=== PATIENT | female | born 1985 | race Asian ===

== ENCOUNTER 2017-02-10 17:02 | Inpatient (IN) ==
--- NOTE | 2017-02-10 17:15 | Emergency Department Note ---
Disposition Clinical Impression: Recurrent seizures, Neck injury, Cyst, ovary, dermoid, Hematuria, Head injury, Lactic acidosis, Hypokalemia, Back injury Disposition: Admitted As Inpatient Referrals: Chu Newton DO [Primary Care Provider] - General Adult HPI - General Stated complaint: Seizures x2 Time Seen by Provider: 02/10/17 17:08 - History of Present Illness HPI Narrative: 31-year-old female with history of autism and recurrent seizures reports emergency department via EMS with father. The patient had reportedly had a seizure in the car and then another one at home while she was in the shower, she was found on the bathtub floor shaking per the father. The patient had a slow recovery and was brought into the ED via EMS. Their concerns for back pain neck pain and head pain. The patient is not known to be diabetic. There is no history of chest pain shortness of breath or abdominal pain no vomiting or diarrhea reported no fever redness or pain sore throat or cough. There is no history of loss of urine or stool or bowel or bladder dysfunction or weakness or numbness in the arms or legs. No lacerations noted. The father reports the patient started having seizures last year and takes Keppra. The patient reported sees Dr. Xiao at this institution/neurologist. Recurrent seizures with injuries are reported. - Related Data Home Medications Medication Instructions Recorded Confirmed Albuterol Sulfate [Ventolin Hfa] 2 puff IH Q4H PRN 02/10/17 02/10/17 Cetirizine HCl [Zyrtec] 10 mg PO DAILY 02/10/17 02/10/17 Fluticasone Propionate Nasal 50 mcg NS DAILY 02/10/17 02/10/17 [Flonase] LevETIRAcetam [Keppra] 1,000 mg PO Q12H 02/10/17 02/10/17 Allergies Allergy/AdvReac Type Severity Reaction Status Date / Time No Known Allergies Allergy Verified 05/01/16 09:30 All systems ED: reviewed and negative except as stated. (Obtained via nursing and father and patient once arousable.) Past Medical History - Past Medical History Medical history: Reports: seizures Psychiatric history: Reports: no psych history - Social History Smoking Status: Never smoker Smokeless Tobacco Status: No Alcohol use: Reports: none Drug use: Reports: none Physical Exam - General Limitations: no limitations General appearance: alert, in no apparent distress - Head Head exam: atraumatic, normocephalic, normal inspection - Eye Eye exam: Present: normal appearance, PERRL, EOMI. Absent: conjunctival injection, miosis, mydriasis, periorbital swelling - ENT ENT exam: normal exam, normal oropharynx, mucous membranes moist, TM's normal bilaterally, normal external ear exam - Neck Neck exam: Present: normal inspection, full ROM, trachea midline, tenderness ( Diffuse tenderness) - Chest Chest inspection: Present: normal inspection, symmetric chest wall rise. Absent : tenderness - Respiratory Respiratory exam: Present: normal lung sounds bilaterally. Absent: respiratory distress, wheezes, stridor, accessory muscle use, prolonged expiratory phase - Cardiovascular Cardiovascular exam: Present: regular rate, normal rhythm, normal heart sounds - Abdominal Exam Abdominal exam: Present: soft, Non-Tender, normal bowel sounds. Absent: tenderness, distention, guarding, rebound, rigidity, trauma, pulsatile mass - Extremities Exam Extremities exam: Present: normal inspection, full ROM, normal capillary refill. Absent: tenderness, pedal edema, joint swelling, calf tenderness - Expanded Upper Extremity Exam Shoulder exam: Present: other (The upper extremities are supple warm and well- perfused with good muscle strength and sensation. There is no evidence of acute bony or joint abnormality. All 4 extremities are warm and well perfused with no evidence of neurovascular or neuromuscular compromise or significant trauma.) - Expanded Lower Extremity Exam Hip/Pelvis exam: Present: normal inspection, full ROM Upper leg exam: Present: normal inspection, full ROM Knee exam: Present: normal inspection, full ROM Lower leg exam: Present: normal inspection Ankle exam: Present: normal inspection, full ROM Foot/toe exam: Present: normal inspection, full ROM Neurovascular/Tendon exam: Present: normal capillary refill. Absent: motor deficit, sensory deficit, tendon deficit, extremity cold to touch, pallor - Back Exam Back exam: Present: normal inspection, full ROM, vertebral tenderness. Absent: tenderness, CVA tenderness (R), CVA tenderness (L) - Neurological Exam Neurological exam: Present: alert, CN II-XII intact. Absent: motor sensory deficit - Psychiatric Psychiatric exam: Present: normal affect, normal mood - Skin Skin exam: Present: warm, dry, intact, normal color. Absent: rash, cyanosis, diaphoresis, erythema, pallor, mottled Course Course Narrative: In the ED, the patient developed tonic-clonic activity which was sustained for about 2 minutes. Ativan was given IM. IV access was established and testing was ordered. The patient's [place] Coma Scale was 13 status post seizure during the recovery period - Reevaluation(s) Reevaluation #1: The patient recovered very quickly from what appeared to be or seizure-like activity and was able to stand up status post. She was able to sit on the melania potty and produce urine. Her mentation cleared. The patient was alert and followed general commands properly. No evidence of darline trauma was noted to the body but the patient did complain of neck head and back pain. Vital Signs Temperature 98.4 F 02/10/17 17:05 Pulse Rate 78 02/10/17 17:05 Respiratory Rate 18 02/10/17 17:05 Blood Pressure 134/62 02/10/17 17:05 O2 Sat by Pulse Oximetry 100 02/10/17 17:05 Temperature 98.4 F 02/10/17 17:28 Pulse Rate 73 02/10/17 21:10 Respiratory Rate 16 02/10/17 21:10 Blood Pressure 119/66 02/10/17 21:10 O2 Sat by Pulse Oximetry 100 02/10/17 21:10 Oxygen Delivery Oxygen Delivery Nasal Cannula Medical Decision Making - [facility] Narrative Medical decision making narrative: The patient seems to have had recurrent seizures today, she is reportedly on Keppra. She had 2 seizures prior to arrival and seizure-like activity in the ED. Ativan was given. The patient's potassium is slightly low, EKG normal sinus rhythm without acute dysrhythmia, IV fluids were given. Lactic acidosis noted, urinalysis shows hematuria, chest x-ray negative. The patient is afebrile. A clear source for infection is not identified. The patient is afebrile and does not display nuchal rigidity. I do not necessarily suspect meningitis. Potassium was ordered. After the postictal state cleared, the patient remained easily arousable in the emergency department. Based on her recurrent seizures while on therapy, I thought it would be appropriate to admit the patient to the hospital. I discussed the case with the hospitalist on-call who is accepted the patient to their care. An IV dose of Keppra was given. The patient states she is not taking her medication as directed. The patient is currently stable. Blood cultures were ordered. - Lab Data Lab results reviewed: Yes I reviewed the patient's lab results. Result diagrams: 02/10/17 18:00 02/10/17 18:00 Lab Results 02/10/17 02/10/17 02/10/17 Range/Units 18:00 18:00 18:00 WBC 14.1 H (4.3-11.1) K/mcL RBC 4.20 (3.82-4.97) M/mcL Hgb 12.9 (11.5-15.4) g/dL Hct 38.3 (35.3-44.9) % MCV 91.2 (83.0-100.0) fL MCH 30.7 (28.0-33.3) pg MCHC 33.7 (31.6-35.5) g/dL RDW 11.9 (11.5-14.5) % Plt Count 244 (140-400) K/mcL MPV 10.2 (9.4-12.4) fL Immature Gran % 0.5 (0-4) % Seg Neutrophils % 81.0 % Lymphocytes % 12.1 % Monocytes % 5.6 % Eosinophils % 0.4 % Basophils % 0.4 % Neutrophils # 11.4 H (1.6-8.9) K/mcL Lymphocytes # 1.7 (0.6-4.6) K/mcL Monocytes # 0.8 (0.0-1.3) K/mcL Eosinophils # 0.1 (0.0-0.6) K/mcL Basophils # 0.1 (0.0-0.2) K/mcL Sodium 139 (136-145) mEq/L Potassium 3.2 L (3.5-4.5) mEq/L Chloride 108 (98-109) mEq/L Carbon Dioxide 18 L (19-29) mEq/L BUN 13 (7-20) mg/dL Creatinine 1.00 (0.57-1.11) mg/dL Est GFR ( Amer) > 60 (> 60) Est GFR (Non-Af Amer) > 60 (> 60) BUN/Creatinine Ratio 13 (6-26) Glucose 119 H (70-99) mg/dL Calculated Osmolality 289 (280-300) Lactic Acid (0.5-2.2) mmol/L Calcium 9.4 (8.6-10.8) mg/dL Phosphorus 2.8 (2.3-4.7) mg/dL Magnesium 2.7 H (1.6-2.6) mg/dL Total Bilirubin 0.8 (0.2-1.2) mg/dL Direct Bilirubin 0.3 (0.0-0.5) mg/dL Indirect Bilirubin 0.5 (0.0-1.2) mg/dL AST 17 (5-34) Units/L ALT 11 (0-55) Units/L Alkaline Phosphatase 61 (38-126) Units/L Troponin I (0-0.03) ng/mL C-Reactive Protein 0 (Less than 5) mg/L Serum Total Protein 7.9 (6.0-8.3) g/dL Albumin 4.1 (3.5-5.0) g/dL Globulin 3.8 H (2.4-3.5) g/dL Albumin/Globulin Ratio 1.1 (1.1-2.2) Serum , Qual (Negative) Urine Color (Yellow) Urine Clarity (Clear) Urine pH (5.0-8.0) pH Units Ur Specific [place] (1.010-1.025) Urine Protein (Neg-Trace) mg/dL Urine Glucose (UA) (Normal) mg/dL Urine Ketones (Negative) mg/dL Urine Blood (Negative) Urine Nitrite (Negative) Urine Bilirubin (Negative) Urine Urobilinogen (Normal) mg/dL Ur Leukocyte Esterase (Negative) Urine Microscopic RBC (0-3) per hpf Urine Microscopic WBC Urine Bacteria (None-Few) per hpf Ur Culture Indicated? (NO) Urine Opiates Screen (Lvbumd=417) ng/mL Ur Barbiturates Screen (Dzprom=954) ng/mL Ur Phencyclidine Scrn (Cutoff=25) ng/mL Ur Amphetamines Screen (Devskr=7993) ng/mL U Benzodiazepines Scrn (Tsfick=284) ng/mL Urine Cocaine Screen (Cutoff= 300) ng/mL U Marijuana (THC) Screen (Cutoff = 50) ng/mL 02/10/17 02/10/17 02/10/17 Range/Units 18:12 18:12 19:00 WBC (4.3-11.1) K/mcL RBC (3.82-4.97) M/mcL Hgb (11.5-15.4) g/dL Hct (35.3-44.9) % MCV (83.0-100.0) fL MCH (28.0-33.3) pg MCHC (31.6-35.5) g/dL RDW (11.5-14.5) % Plt Count (140-400) K/mcL MPV (9.4-12.4) fL Immature Gran % (0-4) % Seg Neutrophils % % Lymphocytes % % Monocytes % % Eosinophils % % Basophils % % Neutrophils # (1.6-8.9) K/mcL Lymphocytes # (0.6-4.6) K/mcL Monocytes # (0.0-1.3) K/mcL Eosinophils # (0.0-0.6) K/mcL Basophils # (0.0-0.2) K/mcL Sodium (136-145) mEq/L Potassium (3.5-4.5) mEq/L Chloride (98-109) mEq/L Carbon Dioxide (19-29) mEq/L BUN (7-20) mg/dL Creatinine (0.57-1.11) mg/dL Est GFR ( Amer) (> 60) Est GFR (Non-Af Amer) (> 60) BUN/Creatinine Ratio (6-26) Glucose (70-99) mg/dL Calculated Osmolality (280-300) Lactic Acid (0.5-2.2) mmol/L Calcium (8.6-10.8) mg/dL Phosphorus (2.3-4.7) mg/dL Magnesium (1.6-2.6) mg/dL Total Bilirubin (0.2-1.2) mg/dL Direct Bilirubin (0.0-0.5) mg/dL Indirect Bilirubin (0.0-1.2) mg/dL AST (5-34) Units/L ALT (0-55) Units/L Alkaline Phosphatase (38-126) Units/L Troponin I (0-0.03) ng/mL C-Reactive Protein (Less than 5) mg/L Serum Total Protein (6.0-8.3) g/dL Albumin (3.5-5.0) g/dL Globulin (2.4-3.5) g/dL Albumin/Globulin Ratio (1.1-2.2) Serum , Qual Negative (Negative) Urine Color Red A (Yellow) Urine Clarity Cloudy A (Clear) Urine pH 6.5 (5.0-8.0) pH Units Ur Specific [place] 1.025 (1.010-1.025) Urine Protein 100 H (Neg-Trace) mg/dL Urine Glucose (UA) Normal (Normal) mg/dL Urine Ketones Trace H (Negative) mg/dL Urine Blood Large H (Negative) Urine Nitrite Negative (Negative) Urine Bilirubin Negative (Negative) Urine Urobilinogen Normal (Normal) mg/dL Ur Leukocyte Esterase Negative (Negative) Urine Microscopic RBC TNTC H (0-3) per hpf Urine Microscopic WBC Test Not Performed Urine Bacteria Few (None-Few) per hpf Ur Culture Indicated? NO (NO) Urine Opiates Screen Negative (Uhidke=606) ng/mL Ur Barbiturates Screen Negative (Xfchcd=705) ng/mL Ur Phencyclidine Scrn Negative (Cutoff=25) ng/mL Ur Amphetamines Screen Negative (Hbnsst=2266) ng/mL U Benzodiazepines Scrn Negative (Zzqlsk=254) ng/mL Urine Cocaine Screen Negative (Cutoff= 300) ng/mL U Marijuana (THC) Screen Negative (Cutoff = 50) ng/mL 02/10/17 02/10/17 Range/Units 19:00 19:00 WBC (4.3-11.1) K/mcL RBC (3.82-4.97) M/mcL Hgb (11.5-15.4) g/dL Hct (35.3-44.9) % MCV (83.0-100.0) fL MCH (28.0-33.3) pg MCHC (31.6-35.5) g/dL RDW (11.5-14.5) % Plt Count (140-400) K/mcL MPV (9.4-12.4) fL Immature Gran % (0-4) % Seg Neutrophils % % Lymphocytes % % Monocytes % % Eosinophils % % Basophils % % Neutrophils # (1.6-8.9) K/mcL Lymphocytes # (0.6-4.6) K/mcL Monocytes # (0.0-1.3) K/mcL Eosinophils # (0.0-0.6) K/mcL Basophils # (0.0-0.2) K/mcL Sodium (136-145) mEq/L Potassium (3.5-4.5) mEq/L Chloride (98-109) mEq/L Carbon Dioxide (19-29) mEq/L BUN (7-20) mg/dL Creatinine (0.57-1.11) mg/dL Est GFR ( Amer) (> 60) Est GFR (Non-Af Amer) (> 60) BUN/Creatinine Ratio (6-26) Glucose (70-99) mg/dL Calculated Osmolality (280-300) Lactic Acid 3.3 H (0.5-2.2) mmol/L Calcium (8.6-10.8) mg/dL Phosphorus (2.3-4.7) mg/dL Magnesium (1.6-2.6) mg/dL Total Bilirubin (0.2-1.2) mg/dL Direct Bilirubin (0.0-0.5) mg/dL Indirect Bilirubin (0.0-1.2) mg/dL AST (5-34) Units/L ALT (0-55) Units/L Alkaline Phosphatase (38-126) Units/L Troponin I 0.00 (0-0.03) ng/mL C-Reactive Protein (Less than 5) mg/L Serum Total Protein (6.0-8.3) g/dL Albumin (3.5-5.0) g/dL Globulin (2.4-3.5) g/dL Albumin/Globulin Ratio (1.1-2.2) Serum , Qual (Negative) Urine Color (Yellow) Urine Clarity (Clear) Urine pH (5.0-8.0) pH Units Ur Specific [place] (1.010-1.025) Urine Protein (Neg-Trace) mg/dL Urine Glucose (UA) (Normal) mg/dL Urine Ketones (Negative) mg/dL Urine Blood (Negative) Urine Nitrite (Negative) Urine Bilirubin (Negative) Urine Urobilinogen (Normal) mg/dL Ur Leukocyte Esterase (Negative) Urine Microscopic RBC (0-3) per hpf Urine Microscopic WBC Urine Bacteria (None-Few) per hpf Ur Culture Indicated? (NO) Urine Opiates Screen (Kzkmro=207) ng/mL Ur Barbiturates Screen (Osvsgu=701) ng/mL Ur Phencyclidine Scrn (Cutoff=25) ng/mL Ur Amphetamines Screen (Ogrzif=2771) ng/mL U Benzodiazepines Scrn (Swqgdx=528) ng/mL Urine Cocaine Screen (Cutoff= 300) ng/mL U Marijuana (THC) Screen (Cutoff = 50) ng/mL - Radiology Data Radiology results reviewed: Yes I reviewed the patient's radiology results.
[2017-02-10] MEDS ORDERED: *HR* LORazepam 2 MG/ML VIAL ONE (17:44)
[2017-02-10] MEDS ORDERED: 0.9 % Sodium Chloride 1,000 ML IVC ONE (17:47)
[2017-02-10] MEDS ORDERED: *HR* LORazepam 2 MG/ML VIAL IM ONE (17:51)
[2017-02-10 18:17] LABS: Basophils # 0.1 K/mcL (0.0-0.2); Basophils % 0.4 %; Eosinophils # 0.1 K/mcL (0.0-0.6); Eosinophils % 0.4 %; Hematocrit 38.3 % (35.3-44.9); Hemoglobin 12.9 g/dL (11.5-15.4); Immature Granulocytes % 0.5 % (0-4); Lymphocytes # 1.7 K/mcL (0.6-4.6); Lymphocytes % 12.1 %; Mean Corpuscular HGB Conc 33.7 g/dL (31.6-35.5); Mean Corpuscular Hemoglobin 30.7 pg (28.0-33.3); Mean Corpuscular Volume 91.2 fL (83.0-100.0); Mean Platelet Volume 10.2 fL (9.4-12.4); Monocytes # 0.8 K/mcL (0.0-1.3); Monocytes % 5.6 %; Neutrophils # 11.4 K/mcL (1.6-8.9); Platelet Count 244 K/mcL (140-400); Red Cell Distribution Width 11.9 % (11.5-14.5)
[2017-02-10 18:24] LABS: Albumin 4.1 g/dL (3.5-5.0); Albumin/Globulin Ratio 1.1 (1.1-2.2); BUN/Creatinine Ratio 13 (6-26); Bilirubin,Direct 0.3 mg/dL (0.0-0.5); Bilirubin,Indirect 0.5 mg/dL (0.0-1.2); Bilirubin,Total 0.8 mg/dL (0.2-1.2); Blood Urea Nitrogen 13 mg/dL (7-20); Calcium 9.4 mg/dL (8.6-10.8); Carbon Dioxide 18 mEq/L (19-29); Chloride 108 mEq/L (98-109); Glucose 119 mg/dL (70-99); Magnesium 2.7 mg/dL (1.6-2.6); Osmolality,Calculated 289 (280-300); Phosphorous 2.8 mg/dL (2.3-4.7); Potassium 3.2 mEq/L (3.5-4.5); Sodium 139 mEq/L (136-145); Total Protein 7.9 g/dL (6.0-8.3); eGFR For African Americans > 60 (> 60); eGFR For Non-African Americans > 60 (> 60)
[2017-02-10 18:25] LABS: Globulin 3.8 g/dL (2.4-3.5)
[2017-02-10 18:26] LABS: Bilirubin,Urine Negative (Negative); Blood,Urine Large (Negative); Clarity,Urine Cloudy (Clear); Color,Urine Red (Yellow); Glucose,Urine (UA) Normal (Normal); Ketones,Urine Trace mg/dL (Negative); Leukocyte Esterase,Urine Negative (Negative); Nitrite,Urine Negative (Negative); PH,Urine 6.5 pH Units (5.0-8.0); Protein,Urine 100 mg/dL (Neg-Trace); Specific Gravity,Urine 1.025 (1.010-1.025); Urobilinogen,Urine Normal (Normal)
[2017-02-10 18:33] LABS: Bacteria,Urine Few per hpf (None-Few); RBC,Urine TNTC per hpf (0-3)
[2017-02-10 18:40] LABS: Amphetamine Screen,Urine Negative ng/mL (Cutoff=1000); Barbiturate Screen,Urine Negative ng/mL (Cutoff=200); Benzodiazepines Screen,Urine Negative ng/mL (Cutoff=200); Cannabinoid Screen,Urine Negative ng/mL (Cutoff = 50); Cocaine Screen,Urine Negative ng/mL (Cutoff= 300); Opiate Screen,Urine Negative ng/mL (Cutoff=300); Phencyclidine Screen,Urine Negative ng/mL (Cutoff=25)
[2017-02-10] MEDS ORDERED: Potassium Chloride 20 MEQ, Lidocaine 1% 2 ML in D5% in Water 250 ML IVPB ONE (21:52)
[2017-02-11] MEDS ORDERED: Ondansetron 4 MG/2 ML VIAL IVP PRN (01:37)
[2017-02-11] MEDS ORDERED: Acetaminophen 325 MG TABLET PO PRN (01:37)
[2017-02-11] MEDS ORDERED: Naloxone 0.4 MG/ML INJ IVP PRN (01:37)
[2017-02-11] MEDS ORDERED: *HR* Morphine 2 MG/ML SYRINGE IVP PRN (01:37)
[2017-02-11] MEDS ORDERED: *HR* LORazepam 2 MG/ML VIAL IVP PRN (01:39)
--- NOTE | 2017-02-11 01:43 | Internal Med History&Physical ---
Date of Encounter: 02/11/17 Time of Encounter: 01:41 Assessment and Plan (1) Recurrent seizures Current visit: Yes Status: Acute Continue with Ativan as needed Keppra 1000 mg IV twice a day, seizure, fall and aspiration precautions Neurology consult Omeprazole for GI prophylaxis and subcutaneous heparin for DVT prophylaxis. Patient will be admitted for observation. Full code. Time spent on this admission 40 minutes. High risk of recurrent seizures (2) Autism Current visit: Yes Status: Acute (3) Hematuria Current visit: Yes Status: Acute No evidence of infection next May repeat UA (4) Lactic acidosis Current visit: Yes Status: Acute Repeat lactic acid Start IV fluids Ordered a CK (5) Hypokalemia Current visit: Yes Status: Acute Replete as needed Internal Medicine - H&P: HPI Chief complaint: Seizures Admitted From: Emergency Dept History of present illness: Ms. Brothers is a 31 year old female with a past medical history of autism, asthma , seizure disorder possibly not compliant with her Keppra. Was brought by the EMS to the ER after her father called for help as the patient had 2 seizures at home. She had not third seizure done in the emergency room for which she was given a dose of Ativan IV. It is unknown whether the patient is compliant with Keppra or not that she is not reliable due to her autism. The potassium was 3.2 lactic acid was 3.3 consult count is 14.2, UA shows only red blood cells too numerous to count. CT scan of the head neck abdomen did not show any acute abnormalities, chest x-ray is unremarkable. Patient is not able to provide any history but seems to be in no distress at the moment. No incontinence evidenced. Past Med Surg Social Fam HX - Past Medical History Medical history: asthma, seizures, other (Autism) Psychiatric history: no psych history - Past Surgical History Surgical History: no surgical history - Social History Smoking Status: Never smoker Smokeless Tobacco Status: No Alcohol use: none Drug use: none - Additional Family History Additional family history: Unknown Internal Medicine - H&P: Meds Albuterol Sulfate [Ventolin Hfa] 2 puff IH Q4H PRN 02/10/17 [History] Cetirizine HCl [Zyrtec] 10 mg PO DAILY 02/10/17 [History] Fluticasone Propionate Nasal [Flonase] 50 mcg NS DAILY 02/10/17 [History] LevETIRAcetam [Keppra] 1,000 mg PO Q12H 02/10/17 [History] Allergies No Known Allergies Allergy (Verified 05/01/16 09:30) All Systems PM: A 10-system review of systems was performed and is negative for pertinent findings except as documented above in the HPI. Review of systems: Unable to complete review of systems due to the patient's status/autism - Constitutional Vitals: Temp Pulse Resp BP Pulse Ox 98.9 F 82 14 130/75 100 02/10/17 23:25 02/10/17 23:25 02/10/17 23:25 02/10/17 23:25 02/10/17 23:25 General appearance: Present: A&O X 1 - Head Head exam: Present: atraumatic, normocephalic - Eye Eye exam: Present: PERRL, conjuntiva pink, sclera anicteric Pupils: Present: PERRL - Neck Neck exam general surgery: Present: supple, trachea midline. Absent: lymphadenopathy - Respiratory Respiratory exam: Present: CTAB. Absent: accessory muscle use, rales, rhonchi, wheezes - Cardiovascular Cardiovascular exam: Present: RRR, +S1, +S2. Absent: diastolic murmur, gallop, rubs, systolic murmur - GI/Abdominal GI/Abdominal exam: Present: normal bowel sounds, soft, no peritoneal signs. Absent: distended, tenderness - Extremities Exam Extremities exam: Present: warm, radial pulses palpable and symetrical. Absent : calf tenderness, cyanotic, pedal edema - Neurological Exam Neurological exam: Present: CN II-XII intact, no focal deficits. Absent: oriented X3, pronater drift, facial droop, speech deficit - Skin Skin exam: Present: dry, intact Internal Med - H&P Results - Labs CBC & Chem 7: 02/10/17 18:00 02/10/17 18:00
[2017-02-11] MEDS: 0.9 % Sodium Chloride 1,000 ML IVC SCH ×2 (02:18→19:40)
[2017-02-11 05:17] LABS: BUN/Creatinine Ratio 14 (6-26); Blood Urea Nitrogen 13 mg/dL (7-20); Calcium 8.5 mg/dL (8.6-10.8); Carbon Dioxide 21 mEq/L (19-29); Chloride 113 mEq/L (98-109); Glucose 96 mg/dL (70-99); Osmolality,Calculated 294 (280-300); Potassium 4.2 mEq/L (3.5-4.5); Sodium 142 mEq/L (136-145); eGFR For African Americans > 60 (> 60); eGFR For Non-African Americans > 60 (> 60)
[2017-02-11] MEDS: *HR* Heparin 5,000 UNIT/ML VIAL SQ SCH ×2 (05:33→18:05)
[2017-02-11] MEDS: levETIRAcetam 1,000 MG in 0.9 % Sodium Chloride 100 ML IVPB SCH ×2 (09:09→20:41)
[2017-02-11 10:26] LABS: Basophils % 0.3 %; Eosinophils % 0.3 %; Hematocrit 32.7 % (35.3-44.9); Immature Granulocytes % 0.4 % (0-4); Lymphocytes # 1.2 K/mcL (0.6-4.6); Lymphocytes % 16.4 %; Mean Corpuscular HGB Conc 33.9 g/dL (31.6-35.5); Mean Corpuscular Hemoglobin 31.2 pg (28.0-33.3); Mean Corpuscular Volume 91.9 fL (83.0-100.0); Monocytes # 0.6 K/mcL (0.0-1.3); Monocytes % 9.1 %; Neutrophils # 5.2 K/mcL (1.6-8.9); Platelet Count 180 K/mcL (140-400); Red Blood Count 3.56 M/mcL (3.82-4.97); Segmented Neutrophils % 73.5 %
[2017-02-11 10:27] LABS: Hemoglobin 11.1 g/dL (11.5-15.4)
--- NOTE | 2017-02-11 14:42 | Neurology - Consult Note ---
Date of Encounter: 02/11/17 Time of Encounter: 14:38 Assessment and Plan (1) Recurrent seizures Current Visit: Yes Status: Acute Patient has seizure disorder, has been on Keppra 1000mg bid and had been enjoying good control of her seizures but now had three witnessed seizures that are quite prolonged therefore would like to treat her more aggressively. Been compliant with keppra per history and will check Keppra level now. Will add on oxcarbazepine 300mg bid and continue keppra 1000mg bid. Please continue medical and supportive care. WIll follow up with in 3-4 weeks after discharge to check oxcarbazepine level. History of Present Illness Chief complaint: recurrent seizure HPI: Ms. Brothers is a 31 year old female with PMH significant for autism, seizure disorder who developed three witnessed seizures, associated with loss of consciousness. Seizures witnessed by her father. Patient known to me and was last seen in August/2016. Been on Keppra 1000mg bid and has not had any seizures since the last 2 years. Last documented seizure 06/2014. Father reports that she has been compliant with taking keppra. no significant provoking factors identified. Father reports that the patient was behaving normal prior to the seizure. CT of head showed normal study Past Med Surg Social Fam HX - Past Medical History Medical history: asthma, seizures, other Psychiatric history: no psych history - Past Surgical History Surgical History: no surgical history - Social History Smoking Status: Never smoker Smokeless Tobacco Status: No Alcohol use: none Drug use: none Medications and Allergies Albuterol Sulfate [Ventolin Hfa] 2 puff IH Q4H PRN 02/10/17 [History] Cetirizine HCl [Zyrtec] 10 mg PO DAILY 02/10/17 [History] Fluticasone Propionate Nasal [Flonase] 50 mcg NS DAILY 02/10/17 [History] LevETIRAcetam [Keppra] 1,000 mg PO Q12H 02/10/17 [History] Allergies No Known Allergies Allergy (Verified 05/01/16 09:30) All Systems: A 10-system review of systems was performed and is negative for pertinent findings except as documented above in the HPI. Physical Examination - Vital Signs Vital Signs: Initial Vital Signs Temp Pulse Resp BP Pulse Ox 98.4 F 78 18 134/62 100 02/10/17 17:05 02/10/17 17:05 02/10/17 17:05 02/10/17 17:05 02/10/17 17:05 - Constitutional General appearance: comfortable - Neurologic Sensorimotor examination: intact Detailed motor examination: grossly full strength in all extremities Detailed sensory examination: intact Reflex and gait examination: intact Reflexes: Biceps: 1+, Triceps: 1+, Brachioradialis: 1+, Patella: 1+, Achilles: 1 + Mental Status Examination: awake, alert, oriented to person, oriented to place, follows commands appropriately, opens eyes to voice, opens eyes to noxious stimulation, makes eye contact, follows simple commands Cranial nerve examination: PERRL, EOMI (skewed eye deviation noted. Chronic condition related to autism), visual alfonso intact, corneal reflexes brisk symmetrically, sensory to face intact, mastication intact, no facial asymmetry is present, no dysarthria, hearing is intact symmetrically, soft palate elevates bilaterally upon phonation, gag reflex intact, flexes SCM and trapezius muscles symmetrically with full power, tongue protrudes midline Results - Laboratory Findings CBC and BMP: 02/11/17 10:20 02/11/17 04:57 Abnormal lab findings: Abnormal lab results RBC 3.56 M/mcL (3.82-4.97) L 02/11/17 10:20 Hgb 11.1 g/dL (11.5-15.4) L D 02/11/17 10:20 Hct 32.7 % (35.3-44.9) L 02/11/17 10:20 Chloride 113 mEq/L (98-109) H 02/11/17 04:57 Calcium 8.5 mg/dL (8.6-10.8) L 02/11/17 04:57 Magnesium 2.7 mg/dL (1.6-2.6) H 02/10/17 18:00 Globulin 3.8 g/dL (2.4-3.5) H 02/10/17 18:00 Urine Color Red (Yellow) A 02/10/17 18:12 Urine Clarity Cloudy (Clear) A 02/10/17 18:12 Urine Protein 100 mg/dL (Neg-Trace) H 02/10/17 18:12 Urine Ketones Trace mg/dL (Negative) H 02/10/17 18:12 Urine Blood Large (Negative) H 02/10/17 18:12 Urine Microscopic RBC TNTC per hpf (0-3) H 02/10/17 18:12 Consult Discharge Plan - Plan Referrals: Chu Newton DO [Primary Care Provider] -
[2017-02-11] MEDS: OXcarbazepine 150 MG TABLET PO SCH ×2 (18:03→21:22)
[2017-02-12] MEDS: *HR* Heparin 5,000 UNIT/ML VIAL SQ SCH (06:47)
[2017-02-12] MEDS: OXcarbazepine 150 MG TABLET PO SCH (08:29)
[2017-02-12] MEDS: levETIRAcetam 1,000 MG in 0.9 % Sodium Chloride 100 ML IVPB SCH (08:30)
--- NOTE | 2017-02-12 08:57 | Electrocardiograph Report ---
[place] [id number] Test Date: 2017-02-10 Pat Name: Caterina Brothers Department: [id number] Room: 3A41 Gender: F Funding Coordinator: DENNISE : 1985 Requested By: Kofi Webb Order Number: [id number] Reading MD: Saruabh Reddy DO Measurements Intervals [place] Rate: 78 P: 52 NM: 161 QRS: 58 QRSD: 98 T: 23 QT: 394 QTc: 427 Interpretive Statements SINUS RHYTHM NONSPECIFIC T-WAVE ABNORMALITY Electronically Signed On 02-12-2017 8:55:42 EDT by Saurabh Reddy DO
[2017-02-12 10:36] VITALS: BP 126/81
--- NOTE | 2017-02-12 11:36 | Discharge Summary ---
Date of Encounter: 02/12/17 Time of Encounter: 11:34 - Discharge Diagnosis (1) Recurrent seizures Priority: Primary Status: Acute - Discharge Medications Prescriptions: OXcarbazepine [Trileptal] 300 mg PO BID #60 tablet Home Medications: Albuterol Sulfate [Ventolin Hfa] 2 puff IH Q4H PRN 02/10/17 [History] Cetirizine HCl [Zyrtec] 10 mg PO DAILY 02/10/17 [History] Fluticasone Propionate Nasal [Flonase] 50 mcg NS DAILY 02/10/17 [History] LevETIRAcetam [Keppra] 1,000 mg PO Q12H 02/10/17 [History] OXcarbazepine [Trileptal] 300 mg PO BID #60 tablet 02/12/17 [Rx] Allergies/Adverse Reactions: Allergies No Known Allergies Allergy (Verified 05/01/16 09:30) Date of admission: 02/12/17 00:36 Primary care physician: Chu Newton DO Discharging clinician: Souleymane Larson Anticipated date of discharge: 02/12/17 - Patient Status Disposition: Home, Self-Care Condition: Fair Functional capacity at discharge: independent ambulation Overall status at discharge: patient is back to baseline - Discharge Instructions Follow Up With: Chu Newton DO [Primary Care Provider] - 02/18/17 10:30 am Forms: ED Satisfaction Letter - Diet and Activity Activity: resume usual activities as tolerated Diet: advance to your usual diet Interval History: Ms. Brothers is a 31 year old female with PMH significant for autism, seizure disorder who developed three witnessed seizures, associated with loss of consciousness. Seizures witnessed by her father. Patient follows with DR. Gudino. Been on Keppra 1000mg bid and has not had any seizures since the last 2 years. Last documented seizure 06/2014. Father reports that she has been compliant with taking keppra. no significant provoking factors identified. Father reports that the patient was behaving normal prior to the seizure. CT of head showed normal study neurology was consulted, keppra level has been ordered. added on oxcarbazepine 300mg bid and continue keppra 1000mg bid. WIll follow up with in 3-[address] Gudino. seh has no more seizures as inpatinet,she is being dc in stable condition. Hospital course: Ms. Brothers is a 31 year old female - Time Spent with Patient Total time spent providing and/or coordinating discharge services: - Constitutional Vitals: Temp Pulse Resp BP Pulse Ox 97.9 F 69 16 126/81 99 02/12/17 10:31 02/12/17 10:31 02/12/17 10:31 02/12/17 10:31 02/12/17 10:31 General appearance: Present: A&O X 1 Exam: - Head Head exam: Present: atraumatic, normocephalic - Eye Eye exam: Present: PERRL, conjuntiva pink, sclera anicteric Pupils: Present: PERRL - Neck Neck exam general surgery: Present: supple, trachea midline. Absent: lymphadenopathy - Respiratory Respiratory exam: Present: CTAB. Absent: accessory muscle use, rales, rhonchi, wheezes - Cardiovascular Cardiovascular exam: Present: RRR, +S1, +S2. Absent: diastolic murmur, gallop, rubs, systolic murmur - GI/Abdominal GI/Abdominal exam: Present: normal bowel sounds, soft, no peritoneal signs. Absent: distended, tenderness - Extremities Exam Extremities exam: Present: warm, radial pulses palpable and symetrical. Absent : calf tenderness, cyanotic, pedal edema - Neurological Exam Neurological exam: Present: CN II-XII intact, no focal deficits. Absent: oriented X3, pronater drift, facial droop, speech deficit - Skin Skin exam: Present: dry, intact
== END 2017-02-12 11:50 | disposition home or self-care (01) | DRG 53 ==
LOC: 3ANU 17:02 → EMEROO 17:02 → 3ANU 23:00
PROVIDERS: ADMIT Internal Medicine Endocrinology, Diabetes & Metabolism; ATTEND Internal Medicine Endocrinology, Diabetes & Metabolism